=== PATIENT | female | born 1995 | race Caucasian/White ===

== ENCOUNTER 2023-10-02 23:34 | Emergency (ER) | payer OTHER ==
[2023-10-03] MEDS ORDERED: NA CHLORIDE 0.9% 1,000 ML ONE (00:21)
[2023-10-03] MEDS ORDERED: KETOROLAC 30 MG/ML INJ ONE (00:21)
[2023-10-03 00:49] LABS: Absolute Lymphocytes (CBC) 2.8 K/uL (0.7-4.9); Hematocrit 34.5 % (36.0-45.0); MCV 76.4 fL (80-100); MPV 7.1 fL (7.6-11.3); Platelets 297 thou/uL (152-406); RBC Red Blood Cell Count 4.52 M/uL (3.86-4.86)
[2023-10-03 01:03] LABS: ALT/SGPT 56 U/L (13-56); AST/SGOT 35 U/L (15-37); Albumin 3.5 g/dL (3.4-5.0); Alkaline Phosphatase 59 U/L (45-117); BUN Blood Urea Nitrogen 19 mg/dL (7-18); Bicarbonate 23 mEq/L (21-32); Bilirubin Total 0.2 mg/dL (0.2-1.0); Glomerular Filtration Rate 124 ml/min (=/>90); Glucose Level 128 mg/dL (74-106); Magnesium 1.8 mg/dL (1.6-2.4); Potassium 3.9 mEq/L (3.5-5.1); Protein, Total 7.2 g/dL (6.4-8.2); Sodium Level 139 mEq/L (136-145); Troponin High Sensitivity 3.9 pg/mL (<58.9)
[2023-10-03 01:09] LABS: Bilirubin Direct < 0.1 mg/dL (0-0.2); Bilirubin Indirect, Calculated ND mg/dL (0.2-0.8)
[2023-10-03 01:11] LABS: Barbiturates NEGATIVE (NEGATIVE); Benzodiazepines NEGATIVE (NEGATIVE); Cocaine NEGATIVE (NEGATIVE); METHAMPHETAM NEGATIVE (NEGATIVE); Methadone NEGATIVE (NEGATIVE); Opiates NEGATIVE (NEGATIVE); Phencyclidine NEGATIVE (NEGATIVE); THC Cannibis NEGATIVE (NEGATIVE)
[2023-10-03 01:15] LABS: Specific Gravity > 1.030 (1.005-1.030)
[2023-10-03 01:23] LABS: Calcium Oxalate Crystals- Ur Few /HPF (None Seen); Specific Gravity > 1.030 (1.005-1.030); Urine Bacteria <20 /HPF (<20); Urine Bilirubin NEGATIVE (Negative); Urine Blood Negative (Negative); Urine Clarity Turbid (Clear); Urine Color Yellow (Yellow); Urine Glucose NEGATIVE (Negative); Urine Mucus 2+ /HPF (None Seen); Urine Protein TRACE (Negative); Urine RBC None Seen /HPF (None Seen); Urine Urobilinogen Normal (Normal); Urine pH 5.5 (5.0-7.0)
[2023-10-03] MEDS ORDERED: FENTANYL CITR 100 MCG/2 ML ONE (03:34)
--- NOTE | 2023-10-03 04:06 | ER ---
Nurse's Notes [facility] Name: Tawana Morin Age: 28 yrs Sex: Female : 1995 Arrival Date: 10/02/2023 Time: 23:34 Bed DX4 Private MD: Diagnosis: Other pneumonia, unspecified organism;Acute bilateral pneumonia, acute bronchopneumonia Presentation: 10/02 23:43 Chief complaint: Patient states: Pt started having left sided chest pain 30 min STRAP SEW[facility] of [facility]. Radiates to left ribs. sharp stabbing. 06/01. Reports SOB. Coronavirus screen: At this time, the client does not indicate any symptoms associated with coronavirus-19. Ebola Screen: No symptoms or risks identified at this time. Initial Sepsis Screen: Does the patient meet any 2 criteria? No. Patient's initial sepsis screen is negative. Does the patient have a suspected source of infection? No. Patient's initial sepsis screen is negative. Risk Assessment: Do you want to hurt yourself or someone else? Patient reports no desire to harm self or others. Onset of symptoms was October 02, 2023. Transition of care: patient was not received from another setting of care. 23:43 Method Of Arrival: EMS: [facility] jb4 23:43 Acuity: BOOM 3 jb4 Historical: - Allergies: 23:48 No Known Allergies; jb4 - Home Meds: 23:48 Methocarbamol Oral [Active]; pantoprazole oral [Active]; sertraline oral [Active]; jb4 propranolol Oral [Active]; rosuvastatin oral [Active]; Toradol Oral [Active]; Trazodone Oral [Active]; - PMHx: 23:48 HTN; DM; Anxiety; Bipolar; Depression; IBS; Migraine; jb4 - Immunization history:: Adult Immunizations up to date. Screenin/12 00:31 [facility] ED Fall Risk Assessment (Adult) History of falling in the last 3 months, jb4 including since admission No falls in past 3 months (0 pts) Confusion or Disorientation No (0 pts) Score/Fall Risk Level 0 - 2 = Low Risk Oriented to surroundings, Maintained a safe environment. Abuse screen: Denies threats or abuse. Nutritional screening: No deficits noted. Tuberculosis screening: No symptoms or risk factors identified. Assessment: 00:31 General: Appears in no apparent distress. comfortable, Behavior is calm, cooperative, jb4 appropriate for age. Pain: Complains of pain in chest Pain radiates to anterior aspect of left lateral abdomen Pain currently is 8 out of 10 on a pain scale. Quality of pain is described as pressure, sharp. Neuro: Level of Consciousness is awake, alert, obeys commands, Oriented to person, place, time, situation. Cardiovascular: Patient's skin is warm and dry. Respiratory: Airway is patent Respiratory effort is even, unlabored, Respiratory pattern is regular, symmetrical. GI: No signs and/or symptoms were reported involving the gastrointestinal system. : No signs and/or symptoms were reported regarding the genitourinary system. EENT: No signs and/or symptoms were reported regarding the EENT system. Derm: Skin is intact, Skin is pink, warm \T\ dry. Musculoskeletal: Circulation, motion, and sensation intact. Range of motion: intact in all extremities. 01:28 Reassessment: Patient appears in no apparent distress at this time. Patient and/or jb4 family updated on plan of care and expected duration. Pain level reassessed. Patient is alert, oriented x 3, equal unlabored respirations, skin warm/dry/pink. 02:05 Reassessment: Patient appears in no apparent distress at this time. Patient and/or jb4 family updated on plan of care and expected duration. Pain level reassessed. Patient is alert, oriented x 3, equal unlabored respirations, skin warm/dry/pink. 04:21 Reassessment: Patient appears in no apparent distress at this time. Patient and/or jb4 family updated on plan of care and expected duration. Pain level reassessed. Patient is alert, oriented x 3, equal unlabored respirations, skin warm/dry/pink. Vital Signs: 10/02 23:43 BP 117 / 56; Pulse 80; Resp 16; Pulse Ox 97% on R/A; Weight 96.16 kg (R); Height 4 ft. jb4 11 in. ; 10/03 02:05 BP 134 / 60; Pulse 72; Resp 16; Pulse Ox 98% on R/A; jb4 04:21 BP 127 / 55; Pulse 77; Resp 16; Pulse Ox 95% on R/A; jb4 10/02 23:43 Body Mass Index 42.82 (96.16 kg, 149.86 cm) jb4 ED Course: 10/02 23:43 Patient arrived in ED. jb4 23:43 Hieu Orozco PA is PHCP. cp 23:43 Jose F Coronel MD is Attending Physician. cp 23:48 Triage completed. jb4 23:48 Arm band placed on right wrist. EKG completed in triage. Results shown to MD. jb4 10/03 00:20 PREGU Sent. ls5 00:20 UDS Sent. ls5 00:20 Urinalysis W/Microscopic Sent. ls5 00:31 Vahe Woods, JOS is Primary Nurse. jb4 00:31 Patient has correct armband on for positive identification. Bed in low position. Call jb4 light in reach. Side rails up X 1. 00:50 XRAY Chest (1 view) In Process Unspecified. EDMS 02:37 US Extremity Venous W Compression Magdaleno In Process Unspecified. EDMS 02:47 CT Chest For PE Angio In Process Unspecified. EDMS 04:29 No provider procedures requiring assistance completed. IV discontinued, intact, jb4 bleeding controlled, No redness/swelling at site. Pressure dressing applied. Administered Medications: 00:27 Drug: NS 0.9% IV 1000 ml IV at 1 bolus Per protocol; 1000 mL bolus Route: IV; Rate: 1 jb4 bolus; Site: right hand; 01:27 Drug: Ketorolac IVP 15 mg IVP once Route: IVP; Site: right hand; jb4 03:21 Drug: fentaNYL (PF) IVP 25 mcg IVP once Route: IVP; Site: right antecubital; jb4 04:14 Drug: AZITHromycin PO 500 mg PO once Route: PO; jb4 04:14 Drug: Ondansetron PO 4 mg PO once Route: PO; jb4 04:14 Drug: Ibuprofen PO 800 mg PO once Route: PO; jb4 04:20 Drug: Rocephin (cefTRIAXone) IM 1 grams IM once Route: IM; Site: left gluteus; jb4 Medication: 00:31 VIS not applicable for this client. jb4 Outcome: 04:06 Discharge ordered by . sp4 04:29 Discharged to home ambulatory, jb4 04:29 Condition: stable 04:29 Discharge instructions given to patient, Instructed on discharge instructions, follow up and referral plans. medication usage, Demonstrated understanding of instructions, follow-up care, medications, Prescriptions given X 04:29 Patient left the ED. jb4 Signatures: Dispatcher [employer] EDMS Hieu Orozco PA PA cp Bryson, James, RN RN jb4 Germán Lynch ls5 Jose F Coronel MD MD sp4
--- NOTE | 2023-10-03 04:06 | EDPHYS ---
Physician Documentation [facility] Name: Tawana Morin Age: 28 yrs Sex: Female : 1995 Arrival Date: 10/02/2023 Time: 23:34 Bed DX4 Private MD: ED Physician Jose F Coronel HPI: 10/02 23:45 This 28 yrs old Female presents to ER via EMS with complaints of Chest Pain. cp 23:45 The patient or guardian reports chest pain that is located primarily in the anterior cp chest wall. 23:45 The pain does not radiate. Associated signs and symptoms: Pertinent positives: lower cp extremity pain, recent travel, slight cough, Pertinent negatives: abdominal pain, diaphoresis, vomiting. Duration: The patient or guardian reports a single episode, that is still ongoing. Severity of pain: in the emergency department the pain is unchanged. Historical: - Allergies: 23:48 No Known Allergies; jb4 - Home Meds: 23:48 Methocarbamol Oral [Active]; pantoprazole oral [Active]; sertraline oral [Active]; jb4 propranolol Oral [Active]; rosuvastatin oral [Active]; Toradol Oral [Active]; Trazodone Oral [Active]; - PMHx: 23:48 HTN; DM; Anxiety; Bipolar; Depression; IBS; Migraine; jb4 - Immunization history:: Adult Immunizations up to date. ROS: 23:50 Cardiovascular: Positive for chest pain, cp 23:50 Eyes: Negative for injury, pain, redness, and discharge, cp 23:50 Constitutional: Negative for body aches, chills, fever, poor PO intake, 23:50 Respiratory: Negative for cough, wheezing, 23:50 Abdomen/GI: Negative for abdominal pain, vomiting, diarrhea, constipation, 23:50 Neuro: Negative for altered mental status, dizziness, headache, numbness, syncope, cp weakness, 23:50 All other systems are negative, Exam: 23:45 ECG was reviewed by the Attending Physician. cp 23:55 Constitutional: The patient appears in no acute distress, alert, awake, cp non-diaphoretic, non-toxic, well developed, well nourished, obese, 23:55 Head/Face: Normocephalic, atraumatic. cp 23:55 Eyes: Periorbital structures: appear normal, Conjunctiva: normal, no exudate, no injection, Sclera: no appreciated abnormality, Lids and lashes: appear normal, bilaterally, 23:55 ENT: External ear(s): are unremarkable, Nose: is normal, Mouth: Lips: moist, Oral mucosa: pink and intact, moist, Posterior pharynx: Airway: no evidence of obstruction, patent, 23:55 Chest/axilla: Inspection: normal, 23:55 Cardiovascular: Rate: normal, Rhythm: regular, JVD: is not appreciated, 23:55 Respiratory: the patient does not display signs of respiratory distress, Respirations: normal, no use of accessory muscles, no retractions, labored breathing, is not present, Breath sounds: decreased breath sounds, are not appreciated, wheezing: is not appreciated, 23:55 Abdomen/GI: Inspection: abdomen appears normal, Palpation: abdomen is soft and non-tender, in all quadrants, 23:55 Back: CVA tenderness, is absent, 23:55 Neuro: Orientation: to person, place \T\ time. Mentation: is normal, Vital Signs: 23:43 BP 117 / 56; Pulse 80; Resp 16; Pulse Ox 97% on R/A; Weight 96.16 kg (R); Height 4 ft. jb4 11 in. ; 10/03 02:05 BP 134 / 60; Pulse 72; Resp 16; Pulse Ox 98% on R/A; jb4 04:21 BP 127 / 55; Pulse 77; Resp 16; Pulse Ox 95% on R/A; jb4 10/02 23:43 Body Mass Index 42.82 (96.16 kg, 149.86 cm) jb4 MDM: 10/02 23:43 Patient medically screened. cp 10/03 00:00 Differential diagnosis: abnormal EKG, acute myocardial infarction, acute pericarditis, cp anxiety, chest wall pain, pericarditis, pleurisy, pneumonia, pneumothorax, pulmonary embolus. 03:58 ED course: COMPARISON: No relevant prior studies available. FINDINGS: Right deep veins: sp4 Unremarkable. No DVT in the right common femoral, femoral, proximal deep femoral, popliteal or visualized calf veins. The veins demonstrate normal color flow, are normally compressible, with normal phasic flow and/or augmentation response. Right superficial veins: Unremarkable. No thrombus in the visualized right great saphenous vein. Left deep veins: Unremarkable. No DVT in the left common femoral, femoral, proximal deep femoral, popliteal or visualized calf veins. The veins demonstrate normal color flow, are normally compressible, with normal phasic flow and/or augmentation response. Left superficial veins: Unremarkable. No thrombus in the visualized left great saphenous vein. Soft tissues: No acute findings. No popliteal cyst. IMPRESSION: No evidence for deep venous thrombosis within the bilateral lower extremity. . ED course: CT - COMPARISON: No relevant prior studies available. FINDINGS: Pulmonary arteries: Unremarkable. No pulmonary arterial filling defects. Aorta: Incidental note is made of a 2-vessel aortic arch with common origin of the right brachiocephalic and left common carotid arteries. No thoracic aortic aneurysm. Lungs: Calcified granulomata on the right. Scattered peripheral tree-in-bud opacities bilaterally. Pleural space: Unremarkable. No significant effusion. No pneumothorax. Heart: Unremarkable. No cardiomegaly. No significant pericardial effusion. No evidence of RV dysfunction. Bones/joints: Mild multilevel osteophytic lipping. No acute fracture. No dislocation. Soft tissues: Unremarkable. Lymph nodes: Unremarkable. No enlarged lymph nodes. Liver: The liver is enlarged. Spleen: The spleen is enlarged. Splenic parenchymal calcifications compatible with remote granulomatous organism exposure. IMPRESSION: 1. No pulmonary embolic disease. 2. Scattered endobronchial infiltrates. 3. Other findings as above. . 04:05 Differential Diagnosis altered mental status, sepsis, flu. Data reviewed: vital signs, sp4 nurses notes, EMS record, lab test result(s), radiologic studies, CT scan, plain films, ultrasound. Consideration of Admission/Observation Escalation of care including admission/observation considered. ED course: Patient has bilateral endobronchial infiltrates distended with acute atypical pneumonia. Will administer Rocephin and Zithromax. Will prescribe Zithromax in the next 5 days.. 10/02 23:45 Order name: Basic Metabolic Panel; Complete Time: :24 cp 10/03 01:24 Interpretation: Normal except: CL 109; GLUC 128; BUN 19. cp 10/02 23:45 Order name: CBC with Diff; Complete Time: 01:24 cp 10/03 01:24 Interpretation: Normal except: WBC 12.80; HGB 11.2; HCT 34.5; MCV 76.4; MCH 24.8; MPV cp 7.1; NEUT A 9.1. 10/02 23:45 Order name: D-Dimer; Complete Time: 01:24 cp 10/03 01:25 Interpretation: Reviewed. cp 10/02 23:45 Order name: LFT's; Complete Time: 01:24 cp 10/03 01:25 Interpretation: Normal except: GLOB 3.7; A/G 0.9. cp 10/02 23:45 Order name: Magnesium; Complete Time: 01:24 cp 10/02 23:45 Order name: Troponin HS; Complete Time: 01:24 cp 10/02 23:45 Order name: Urinalysis W/Microscopic; Complete Time: 01:24 cp 10/03 01:25 Interpretation: Normal except: UCLA Turbid; Urine SG > 1.030; UPROT TRACE. cp 10/02 23:45 Order name: UDS; Complete Time: 01:24 cp 10/03 01:25 Interpretation: Reviewed. cp 10/02 23:45 Order name: PREGU; Complete Time: 01:24 cp 10/02 23:45 Order name: XRAY Chest (1 view) cp 10/03 01:58 Order name: US Extremity Venous W Compression Magdaleno cp 10/03 01:58 Order name: CT Chest For PE Angio cp 10/02 23:45 Order name: EKG; Complete Time: 23:45 cp 10/02 23:45 Order name: EKG - Nurse/Tech; Complete Time: 23:52 cp 10/02 23:45 Order name: IV Saline Lock; Complete Time: 00:04 cp 10/02 23:45 Order name: Labs collected and sent; Complete Time: 00:04 cp 10/02 23:45 Order name: O2 Per Protocol; Complete Time: 23:52 cp 10/02 23:45 Order name: O2 Sat Monitoring; Complete Time: 23:52 cp EC/11 23:45 Rate is 79 beats/min. Rhythm is regular. [place] interval is normal. QRS interval is normal. cp QT interval is normal. T waves are Inverted in leads III, aVR. Interpreted by me. Reviewed by me. Administered Medications: 10/03 00:27 Drug: NS 0.9% IV 1000 ml IV at 1 bolus Per protocol; 1000 mL bolus Route: IV; Rate: 1 jb4 bolus; Site: right hand; : Drug: Ketorolac IVP 15 mg IVP once Route: IVP; Site: right hand; jb4 03:21 Drug: fentaNYL (PF) IVP 25 mcg IVP once Route: IVP; Site: right antecubital; jb4 04:14 Drug: AZITHromycin PO 500 mg PO once Route: PO; jb4 04:14 Drug: Ondansetron PO 4 mg PO once Route: PO; jb4 04:14 Drug: Ibuprofen PO 800 mg PO once Route: PO; jb4 04:20 Drug: Rocephin (cefTRIAXone) IM 1 grams IM once Route: IM; Site: left gluteus; jb4 Disposition: 04:04 Co-signature as Attending Physician, Jose F Coronel MD I agree with the assessment sp4 and plan of care. I reviewed the patient's care provided by Advanced Practice Provider \T\ agree w/ the diagnosis \T\ care plan. I personally saw the pt \T\ performed a substantive portion of the visit, incldng all aspects of the (History/Exam/Medical Decision Making). Disposition Summary: 10/03/23 04:06 Discharge Ordered Notes: Location: Home sp4 Problem: new sp4 Symptoms: have improved sp4 Condition: Stable sp4 Diagnosis - Other pneumonia, unspecified organism sp4 - Acute bilateral pneumonia, acute bronchopneumonia sp4 Followup: sp4 - With: Private Physician - When: 7 - 10 days - Reason: Recheck today's complaints Discharge Instructions: - Discharge Summary Sheet sp4 - Community-Acquired Pneumonia, Adult sp4 Forms: - Patient Portal Instructions sp4 Prescriptions: - Zithromax Z-Victor Manuel 250 mg Oral Tablet - take 1 tablet ORAL route as directed for 5 days Day 1 - take two (2) tablets sp4 one time. Day 2, 3, 4 , 5 take one (1) tablet once daily.; 6 tablet; Refills: 0, Product Selection Permitted Signatures: Dispatcher [employer] EDMS Hieu Orozco PA PA cp Bryson, James, RN RN jb4 Jose F Coronel MD MD sp4
[2023-10-03] MEDS ORDERED: AZITHROMYCIN 250 MG TAB ONE (04:24)
[2023-10-03] MEDS ORDERED: IBUPROFEN 400 MG TAB ONE (04:24)
[2023-10-03] MEDS ORDERED: ONDANSETRON 4 MG (ODT) TAB ONE (04:25)
[2023-10-03] MEDS ORDERED: WATER FOR INJ,STERILE 10 ML ONE (04:25)
[2023-10-03] MEDS ORDERED: CEFTRIAXONE 1000 MG/VIAL ONE (04:25)
[2023-10-03 04:37] VITALS: BP 127/55; O2SAT 95
--- NOTE | 2023-10-03 13:40 | EKG ---
Test Date: 2023-10-02 Test Time: 23:39:39 Licensed Loan Officer: NICK MEASUREMENT RESULTS: Intervals: Rate: 79 CA: 146 QRSD: 74 QT: 374 QTc: 428 [place]: P: 27 CA: 146 QRS: 30 T: 30 INTERPRETIVE STATEMENTS: Normal sinus rhythm Cannot rule out Anterior infarct, age undetermined Abnormal ECG No previous ECG available for comparison Electronically Signed On 10-03-23 13:38:47 PROCUREMENT ANALYST by Salazar Brown
--- NOTE | 2023-10-03 22:06 | RAD REPORT ---
EXAM DESCRIPTION: CT Angiography Chest With Intravenous Contrast CLINICAL HISTORY: CHEST PAIN TECHNIQUE: Axial computed tomographic angiography images of the chest with intravenous contrast. S agittal and coronal reformatted images were created and reviewed. This CT exam was performed using one or more of the following dose reduction techniques: automated exposure control, adjustment of t he mA and/or kV according to patient size, and/or use of iterative reconstruction technique. MIP reconstructed images were created and reviewed. COMPARISON: No relevant prior studies available. FINDINGS: Pulmonary arteries: Unremarkable. No pulmonary arterial filling defects. Aorta: Incidental note is made of a 2-vessel aortic arch with common origin of the right brachiocep halic and left common carotid arteries. No thoracic aortic aneurysm. Lungs: Calcified granulomata on the right. Scattered peripheral tree-in-bud opacities bilaterally. Pleural space: Unremarkable. No significant effusion. No pneumothorax. Heart: Unremarkable. No cardiomegaly. No significant pericardial effusion. No evidence of RV dysfunction. Bones/joints: Mild multilevel osteophytic lipping. No acute fracture. No dislocation. Soft tissues: Unremarkable. Lymph nodes: Unremarkable. No enlarged lymph nodes. Liver: The liver is enlarged. Spleen: The spleen is enlarged. Splenic parenchymal calcifications compatible with remote granuloma tous organism exposure. IMPRESSION: 1. No pulmonary embolic disease. 2. Scattered endobronchial infiltrates. 3. Other findings as above. Electronically signed by: Rolando Sandhu MD 10/03/2023 03:43 AM MACHINE LACER Due to temporary technical issues with the PACS/Fluency reporting system, reports are being signed by the in house radiologists without review as a courtesy to insure prompt reporting. The interpreting radiologist is fully responsible for the content of the report.
--- NOTE | 2023-10-03 22:07 | RAD REPORT ---
EXAM DESCRIPTION: US Duplex Bilateral Lower Extremities Veins CLINICAL HISTORY: PAIN TECHNIQUE: Real-time duplex ultrasound scan of the bilateral lower extremity veins integrating B-mod e two-dimensional vascular structure, Doppler spectral analysis, color flow Doppler imaging and compr ession. COMPARISON: No relevant prior studies available. FINDINGS: Right deep veins: Unremarkable. No DVT in the right common femoral, femoral, proximal deep femoral, popliteal or visualized calf veins. The veins demonstrate normal color flow, are norm ally compressible, with normal phasic flow and/or augmentation response. Right superficial veins: Unremarkable. No thrombus in the visualized right great saphenous vein. Left deep veins: Unremarkable. No DVT in the left common femoral, femoral, proximal deep femoral, popliteal or visualized calf veins. The veins demonstrate normal color flow, are normally compress ible, with normal phasic flow and/or augmentation response. Left superficial veins: Unremarkable. No thrombus in the visualized left great saphenous vein. Soft tissues: No acute findings. No popliteal cyst. IMPRESSION: No evidence for deep venous thrombosis within the bilateral lower extremity. Electronically signed by: Rolando Sandhu MD 10/03/2023 03:25 AM PRIMER INSERTING MACHINE OPERATOR Due to temporary technical issues with the PACS/Fluency reporting system, reports are being signed by the in house radiologists without review as a courtesy to insure prompt reporting. The interpreting radiologist is fully responsible for the content of the report.
--- NOTE | 2023-10-03 22:08 | RAD REPORT ---
EXAM DESCRIPTION: X-ray single view chest. CLINICAL HISTORY: 28 years Female, CHEST PAIN COMPARISON: None. TECHNIQUE: Single portable x-ray view of the chest performed on 10/03/2023 at 12:19 AM FINDINGS: The lungs are well expanded and are clear. There is no evidence of a pneumothorax. The cardiac silhouette is normal in size and configuration. The mediastinal contours are normal. No acute osseous abnormality is identified. No focal soft tissue abnormalities are seen. Lines and tubes: None. IMPRESSION: No evidence of acute intrathoracic disease. Electronically signed by: Lillian Anthony DO 10/03/2023 01:24 AM BUSINESS INTERN Due to temporary technical issues with the PACS/Fluency reporting system, reports are being signed by the in house radiologists without review as a courtesy to insure prompt reporting. The interpreting radiologist is fully responsible for the content of the report.
== END 2023-10-03 04:29 | disposition home or self-care (01) ==
LOC: ER 23:34
DX: J18.9 Pneumonia, unspecified organism (principal); J18.0 Bronchopneumonia, unspecified organism; E11.9 Type 2 diabetes mellitus without complications; I10 Essential (primary) hypertension; F31.9 Bipolar disorder, unspecified
CPT/HCPCS: 93005; 85025; 81001; 80048; 36415; 83735; 81025; 85379; 80076; 84484; 80307; 71275; 71045; 93970; 96372; 99284; Q9967; Q0162; J3010; J7030; J0696